=== PATIENT | female | born 2000 | race African-American/Black ===

== ENCOUNTER 2024-05-16 02:17 | Emergency (ER) | payer MEDICAID ==
[~2024-05-16] VITALS: Ht 165.1 cm; Wt 54.4 kg
[~2024-05-16 02:17] MED LIST: ALBUTEROL
[2024-05-16 02:32] VITALS: O2SAT 98
[2024-05-16 03:23] LABS: BASOPHILS % 0.1 % (0.0-2.0); EOSINOPHILS % 0.5 % (0.0-5.0); HEMATOCRIT. 30.7 % (36.0-48.0); HEMOGLOBIN. 10.2 g/dL (12.0-16.0); LYMPHOCYTES % 7.7 % (20.0-50.0); MEAN CORPUSCULAR HEMOGLOBIN 28.2 pg (28.0-32.0); MEAN CORPUSCULAR HGB CONC 33.1 g/dL (31.0-37.0); MEAN CORPUSCULAR VOLUME 85.1 fL (81.0-99.0); MEAN PLATELET VOLUME 6.9 fl (7.4-10.4); MONOCYTES % 3.7 % (2.0-8.0); PLATELET 386 x1000/uL (130-400); RED CELL DISTRIBUTION WIDTH 14.9 % (11.6-14.6); WHITE BLOOD COUNT 13.4 x1000/uL (4.5-11.0)
[2024-05-16] MEDS: ACETAMINOPHEN 1000MG/100ML 100 ML IV ONE (03:59)
[2024-05-16 04:02] LABS: HCG SCREEN POSITIVE
[2024-05-16] MEDS: SODIUM CHLORIDE 0.9% 1,000 ML IV NR (04:22)
[2024-05-16 04:36] LABS: COLOR URINE YELLOW (YELLOW); GLUCOSE URINE NEGATIVE (NEGATIVE); KETONES URINE 1+ (NEGATIVE); NITRITE URINE NEGATIVE (NEGATIVE); OCCULT BLOOD URINE 3+ (NEGATIVE); PH URINE 7.5 (4.5-8.0); PROTEIN URINE 1+ (NEGATIVE)
[2024-05-16 04:37] LABS: LEUKOCYTE ESTERASE URINE NEGATIVE (NEGATIVE)
[2024-05-16 04:41] LABS: CLARITY URINE CLOUDY (CLEAR); SQUAMOUS EPITHELIAL CELL URINE 1+ /lpf (RARE/1+)
[2024-05-16 04:42] LABS: RBC URINE 50-100 /hpf (0-2)
[2024-05-16 04:43] LABS: BACTERIA URINE TRACE; MUCUS URINE 2+ /lpf (< = 2+); WBC URINE 0-2 /hpf (0-2)
[2024-05-16 05:02] LABS: CHLORIDE 106 mEq/L (98-107); POTASSIUM 3.6 mEq/L (3.5-5.1); SODIUM 138 mEq/L (136-145)
[2024-05-16 05:03] LABS: CARBON DIOXIDE 27 mEq/L (21-32)
[2024-05-16 05:04] LABS: CALCIUM 8.9 mg/dL (8.7-10.4)
[2024-05-16 05:08] LABS: CREATININE 0.6 mg/dL (0.6-1.0)
[2024-05-16 05:09] LABS: GLUCOSE 116 mg/dL (70-105); UREA NITROGEN BLOOD 9 mg/dL (9-23)
[2024-05-16 05:10] LABS: ALANINE AMINOTRANSFERASE 11 IU/L (10-49); ALBUMIN 4.2 g/dL (3.2-4.8); ASPARTATE AMINOTRANSFERASE 17 IU/L (<34)
[2024-05-16 05:11] LABS: BILIRUBIN DIRECT 0.2 mg/dL (<=3.0); BILIRUBIN TOTAL 0.8 mg/dL (0.1-1.0); PROTEIN TOTAL 7.3 g/dL (6.0-8.3)
[2024-05-16] MEDS ORDERED: ACET-2708 MT (05:31)
[2024-05-16 05:52] VITALS: BP 96/59; PULSE 78; RESP 13; TEMP 36.8; O2SAT 99
== END 2024-05-16 06:02 | disposition home or self-care (01) ==
LOC: ER 02:17
DX: O03.4 Incomplete spontaneous abortion without complication (principal); Z3A.12 12 weeks gestation of pregnancy; O03.9 Complete or unspecified spontaneous abortion without complication
CPT/HCPCS: 80076; 80048; 81003; 84703; 84702; 83880; 83605; 85025; 86850; 86900; 86901; 87040; 36415; 84145; 76830; 76856; 96361; 96365; 99285; Z7610 ×2; J0131